=== PATIENT | female | born 1980 | race Caucasian/White ===

== ENCOUNTER 2023-12-27 14:44 | Emergency (ER) | payer OTHER, SELFPAY ==
[2023-12-27 14:55] VITALS: BP 115/82
--- NOTE | 2023-12-27 17:06 | ED.MUSCINJ ---
HPI-Injury
General
Chief Complaint: Musculo-Skeletal Complaint
Source: patient
Exam Limitations: none
Time Seen by Provider: 12/27/23 15:24
Nursing documentation reviewed up to this point in time: agreed with
Travel History
Have you had any contact with someone who has COVID-19?: No
Do you have any symptoms of coronavirus? Fever > 100 degrees, chills, cough, shortness of breath, sore throat, loss of taste or smell, muscle aches, or headache?: No
History of Present Illness-Injury
Initial Injury comments:
43-year-old female with hypothyroidism states 3 days ago she developed pain behind her right knee, the next day the pain became worse and her calf felt tight. Today at the knee the calf and the distal thigh feels tight with a little numbness in the
calf. She denies chest pain or trouble breathing. She denies recent travel.
Past History
Past History
ED Past Medical History: Hypothyroidism and Other (Colitis)
ED Past Surgical History: Cholecystectomy, and Orthopedic (Carpal tunnel Right, Bunionectiomy Left)
Social History
Tobacco: Non-smoker
Alcohol: Occasional
Personal:
Living: with family
Employment: Employed
Review of Systems
Review of Systems
Allergies reviewed?: Yes
All Other Systems: ROS reviewed and negative except as documented in HPI and ROS
Respiratory: Denies trouble breathing
Cardiac: Denies chest pain
Musculoskeletal: Reports other (Pain and tightness behind right knee, right calf, distal right thigh)
Skin: Reports no symptoms
Phy Exam
Physical Exam
Physical Exam:
GENERAL: No acute distress. A&Ox3.
CONSTITUTIONAL: Afebrile.
RESPIRATORY: Regular respirations, nonlabored, lungs clear.
CARDIOVASCULAR: Regular rate and rhythm, no murmurs, no rubs.
MUSCULOSKELETAL: Moves with ease. Well perfused. No significant swelling noted in the right lower extremity. No redness or warmth.
SKIN: Warm, dry, pink
PSYCH: Normal mood and affect. Well kept, interactive and appropriate
NEUROLOGIC: Awake, alert and oriented. No focal neurological deficits
Injury Course
Orders/Labs/Results
Orders:
Orders
12/27/23 16:07
US Periph Venous LOWER Ext RT Urgent
Comment:
Reason For Exam: pain behind knee calf tight
MDM/Problems Addressed
Differential Diagnosis Includes:
DVT, Gregory's cyst, muscle strain
MDM/Problems Addressed:
43-year-old female with hypothyroidism states 3 days ago she developed pain behind her right knee, the next day the pain became worse and her calf felt tight. Today at the knee the calf and the distal thigh feels tight with a little numbness in the
calf. She denies chest pain or trouble breathing. She denies recent travel.
12/27/2023 1650 PM
Ultrasound negative for DVT, most likely a ruptured Gregory's cyst.
Patient is ambulating well without limp
Given a note for off work tomorrow to rest ice and elevate
*Critical Care Note
Total Time (30-74mins, 75-104mins- exclusive of procedures): Not Applicable
ED Attending Note
-
Portions of this chart may have been created with voice recognition software.� Occasional wrong word or��sound alike� substitutions may have occurred due to the inherent limitations of voice recognition software.
Discharge Plan
Departure
Patient Disposition: Home (Routine Discharge)
Date of Disposition: 12/27/23
Time of Disposition: 16:53
Patient with high blood pressure during this ER visit?: No
Condition: Good
Discharge Problem:
Pain in right leg, Gregory's cyst, ruptured
Instructions: Muscle Strain (DC), Gregory's Cyst (DC), Using Cold for Pain
Prescriptions:
No Action
ondansetron 4 mg tablet,disintegrating
4 mg PO Q8HPRN PRN (Reason: nausea and vomiting) Qty: 10 0RF
pantoprazole [Protonix] 40 mg tablet,delayed release (DR/EC)
40 mg PO DAILY Qty: 10 0RF
Referrals:
Luis Miguel Saenz MD [Active] - As needed
NONE,* [Family Provider] -
Stand Alone Forms: Return to Work
Activity Restrictions/Additional Instructions:
Your ultrasound is negative for a clot.
You most likely have ruptured a Gregory's cyst.
Respiratory 3 days then activity as tolerated.
Interventions
Interventions:
*Risk Screen - Suicide Last Done: 12/27/23 14:58
*General Assessment Last Done: 12/27/23 14:58
*Neglect/Abuse Screening Last Done: 12/27/23 14:58
ED- Fall Risk Assessment Last Done: 12/27/23 17:05
*ED COVID-19 Vaccine History Last Done: 12/27/23 17:05
*Nursing Disposition Last Done: 12/27/23 17:05
ED-Musculoskeletal Assessment Last Done: 12/27/23 16:33
Discharge Date and Time
Discharge Date/Time: 12/27/23 17:06
== END 2023-12-27 17:06 | disposition home or self-care (01) ==
LOC: EMR 14:44
PROVIDERS: EMERGENCY PHYSICIAN Emergency Medicine
DX: M79.661 Pain in right lower leg (principal); E03.9 Hypothyroidism, unspecified
CPT/HCPCS: 99284; 93971

== ENCOUNTER → 2024-08-08 07:06 | Outpatient (REF) | payer OTHER, SELFPAY ==
[2024-08-08 19:22] LABS: Rubella Positive
[2024-08-08 20:09] LABS: Hepatitis B Surface Antibody Positive
[2024-08-10 07:20] LABS: Quantiferon Mitogen minus NIL 9.96 IU/mL; Quantiferon NIL 0.04 IU/mL; Quantiferon TB Gold Plus Negative (Negative)
== END ==
LOC: OHS 07:06
PROVIDERS: ATTENDING PHYSICIAN Nurse Practitioner Family
DX: Z23 Encounter for immunization (principal)
CPT/HCPCS: 36415; 86480; 86706; 86735; 86762; 86765; 86787

== ENCOUNTER → 2024-10-04 16:00 | Outpatient (REF) | payer OTHER, SELFPAY ==
[2024-10-04 18:20] LABS: Free T4 1.08 ng/dl (0.78-2.19)
== END ==
LOC: REG 16:00
DX: E06.3 Autoimmune thyroiditis (principal)
CPT/HCPCS: 36415; 84439; 84443

== ENCOUNTER 2024-10-10 17:35 | Emergency (ER) | payer BC, SELFPAY ==
[2024-10-10 17:43] VITALS: BP 111/79
[2024-10-10 18:19] LABS: % Basophils 0.3 % (0-2); % Eosinophils 0.1 % (0-6); % Immature Granulocytes 0.1 % (0-0.5); % Lymphocytes 12.3 % (20.5-51.1); % Monocytes 7.4 % (1.7-9.3); % Neutrophils 79.8 % (42.2-75.2); Absolute Lymphocytes 0.9 10^3/uL (1.2-3.4); Absolute Monocytes 0.5 10^3/uL (0.1-0.6); Absolute Neutrophils 5.7 10^3/uL (1.4-6.5); Hematocrit 40.9 % (37.0-47.0); Hemoglobin 13.9 g/dL (12.0-16.0); Mean Corpuscular Hgb 33.4 pg (27.0-31.0); Mean Corpuscular Volume 98.3 fL (81.0-99.0); Nucleated Red Blood Cells % 0 %; Platelet Count 202 10^3/uL (130-400); Red Blood Cell Count 4.16 10^6/uL (4.20-5.40); Red Cell Dist. Width 12.2 % (11.5-14.5); White Blood Cell Count 7.2 10^3/uL (4.8-10.8)
[2024-10-10 18:35] LABS: ALT (SGPT) 17 U/L (0-35); AST (SGOT) 24 U/L (14-36); Albumin 4.7 g/dl (3.5-5.0); Alkaline Phosphatase 53 U/L (38-126); Blood Urea Nitrogen 18 mg/dl (7-17); Calcium 9.4 mg/dl (8.4-10.2); Carbon Dioxide 29 mmol/L (22-30); Chloride 98 mmol/L (98-107); Glucose 94 mg/dl (70-99); Potassium 4.9 mmol/L (3.5-5.1); Sodium 134 mmol/L (135-145); Total Bilirubin 0.6 mg/dl (0.2-1.3); Total Protein 7.4 g/dl (6.3-8.2); eGFR > 60.00
[2024-10-10 18:51] LABS: COVID-19 Antigen Negative (Negative)
[2024-10-10 22:12] VITALS: BMI 26.8
[2024-10-10 22:14] VITALS: BP 132/81
--- NOTE | 2024-10-10 22:31 | ED.GENMED ---
History of Present Illness
General
Chief Complaint: Headache
Time Seen by Provider: 10/10/24 22:19
History of Present Illness
History of Present Illness:
43-year-old female presents the emergency department for evaluation of diffuse body aches headache cough and fever that began today. Temp on arrival was 101.2 Fahrenheit. Does have a history of migraines but states that her head is never hurt this
bad. Took ibuprofen this morning without relief. No vomiting or diarrhea. No ill contacts at home.
Past History
Past History
ED Past Medical History: Hypothyroidism and Other (Colitis)
ED Past Surgical History: Cholecystectomy, and Orthopedic (Carpal tunnel Right, Bunionectiomy Left)
Social History
Tobacco: Non-smoker
Alcohol: Occasional
Personal:
Living: with family
Employment: Employed
Review of Systems
Review of Systems
Allergies reviewed?: Yes
All Other Systems: ROS reviewed and negative except as documented in HPI and ROS
Phy Exam
Physical Exam
Physical Exam:
GEN: Well appearing, NAD, WDWN
HEENT: Oral mucosa moist, no scleral icterus
Cardiac: Mildly tachycardic, regular
Lung: No respiratory distress, no tachypnea, lungs clear to auscultation bilaterally
MSK: No gross deformity or injuries
Skin: Good color, no pallor or jaundice, no rashes
Neuro: AO x3, cranial nerves II through XII grossly intact, moves all extremities freely
Psych: Calm, cooperative
Sepsis
Sepsis Screening
Sepsis Assessment: Sepsis Ruled Out
Sepsis Screen
Sepsis Screen: Sepsis Ruled Out
Date: 10/11/24
Time: 03:25
Course
Orders/Labs/Results
Orders:
Orders
10/10/24 17:47
Electrocardiogram (*1) Urgent
Reason for Study: Chest Pain
EKG- Treatment ONCE
10/10/24 18:01
COVID-19 Antigen Urgent
Source: Nasal Swab
Complete Blood Count/With Diff Urgent
Comprehensive Metabolic Panel Urgent
Influenza A+B Rapid Molecular Urgent
BENITA Source: Nasal Swab
Specimen Description:
10/10/24 22:30
Butalb/Acetaminophen/Caffeine [Fioricet] 1 tab PO NOW STA
Ketorolac [Toradol] 30 mg IM NOW STA
10/10/24 22:32
Ketorolac [Toradol] 15 mg IV NOW STA
Metoclopramide [Reglan] 10 mg IV NOW STA
Abnormal Lab Results
10/10/24
18:01
RBC 4.16 L 10^6/uL
(4.20-5.40)
MCH 33.4 H pg
(27.0-31.0)
Absolute Lymphs (auto) 0.9 L 10^3/uL
(1.2-3.4)
Neutrophils % 79.8 H %
(42.2-75.2)
Lymphocytes % 12.3 L %
(20.5-51.1)
Sodium 134 L mmol/L
(135-145)
BUN 18 H mg/dl
(7-17)
10/10/24 18:01
10/10/24 18:01
Vital Signs
Initial and Last Documented VS:
Initial Vital Signs
Temp Pulse Resp BP Pulse Ox
101.2 F H 118 20 111/79 99
10/10/24 17:43 10/10/24 17:43 10/10/24 17:43 10/10/24 17:43 10/10/24 17:43
Last Documented Vital Signs
Temp Pulse Resp BP Pulse Ox
99.7 F 92 16 95/54 98
10/10/24 22:14 10/11/24 00:16 10/11/24 00:16 10/11/24 00:16 10/11/24 00:16
MDM/Problems Addressed
MDM/Problems Addressed:
Suspect acute influenza given fever body aches and headache although influenza testing negative, this may be false negative in the setting of early presentation. No indications for antivirals at this time. Labs reassuring, headache resolved with
supportive treatment in the ED. Discussed supportive care
*Critical Care Note
Total Time (30-74mins, 75-104mins- exclusive of procedures): Not Applicable
ED Attending Note
-
Portions of this chart may have been created with voice recognition software.� Occasional wrong word or��sound alike� substitutions may have occurred due to the inherent limitations of voice recognition software.
Discharge Plan
Departure
Patient Disposition: Home (Routine Discharge)
Date of Disposition: 10/11/24
Time of Disposition: 00:10
Patient with high blood pressure during this ER visit?: No
Discharge Problem:
Influenza
Instructions: Flu
Prescriptions:
No Action
ondansetron 4 mg tablet,disintegrating
4 mg PO Q8HPRN PRN (Reason: nausea and vomiting) Qty: 10 0RF
pantoprazole [Protonix] 40 mg tablet,delayed release (DR/EC)
40 mg PO DAILY Qty: 10 0RF
Referrals:
NONE,* [Family Provider] -
Stand Alone Forms: Return to Work
Interventions
Interventions:
*Risk Screen - Suicide Last Done: 10/10/24 17:43
*General Assessment Last Done: 10/10/24 17:43
*Neglect/Abuse Screening Last Done: 10/10/24 17:43
*Nursing Disposition Last Done: 10/11/24 00:30
ED- Neurological Assessment Last Done: 10/10/24 23:00
Discharge Date and Time
Discharge Date/Time: 10/11/24 00:32
Print Language: ARABIC
[2024-10-10] MEDS: TORADOL 15 MG IV (23:14)
[2024-10-10] MEDS: FIORICET 1 TAB PO (23:19)
[2024-10-10] MEDS: REGLAN 10 MG IV (23:21)
[2024-10-11 00:16] VITALS: BP 95/54
== END 2024-10-11 00:32 | disposition home or self-care (01) ==
LOC: EMR 17:35
PROVIDERS: Emergency Medicine; EMERGENCY PHYSICIAN Emergency Medicine
DX: J11.1 Influenza due to unidentified influenza virus with other respiratory manifestations (principal); E03.9 Hypothyroidism, unspecified; Z90.49 Acquired absence of other specified parts of digestive tract
CPT/HCPCS: 96374; 96375; 99284; 80053; 85025; 87502; 87811; 93005

== ENCOUNTER → 2024-11-26 08:25 | Outpatient (REF) | payer BC, SELFPAY ==
[2024-11-26 15:55] LABS: Free T3 3.42 pg/ml (2.77-5.27); Free T4 1.43 ng/dl (0.78-2.19)
[2024-11-26 16:10] LABS: TSH 0.38 uIU/ml (0.47-4.68)
== END ==
LOC: REG 08:25
DX: E06.3 Autoimmune thyroiditis (principal)
CPT/HCPCS: 36415; 84439; 84443; 84481

== ENCOUNTER → 2025-03-17 08:43 | Outpatient (REF) | payer BC, SELFPAY ==
[2025-03-17 09:51] LABS: % Basophils 0.4 % (0-2); % Eosinophils 0.3 % (0-6); % Immature Granulocytes 0.3 % (0-0.5); % Lymphocytes 20.2 % (20.5-51.1); % Monocytes 5.5 % (1.7-9.3); % Neutrophils 73.3 % (42.2-75.2); Absolute Lymphocytes 1.6 10^3/uL (1.2-3.4); Absolute Monocytes 0.4 10^3/uL (0.1-0.6); Absolute Neutrophils 5.8 10^3/uL (1.4-6.5); Hematocrit 42.5 % (37.0-47.0); Hemoglobin 14.3 g/dL (12.0-16.0); Mean Corp Hgb Conc. 33.6 g/dL (33.0-37.0); Mean Corpuscular Hgb 33.5 pg (27.0-31.0); Mean Corpuscular Volume 99.5 fL (81.0-99.0); Mean Platelet Volume 10.2 fL (7.4-10.4); Nucleated Red Blood Cells % 0 %; Platelet Count 214 10^3/uL (130-400); Red Blood Cell Count 4.27 10^6/uL (4.20-5.40); Red Cell Dist. Width 12.5 % (11.5-14.5); White Blood Cell Count 7.9 10^3/uL (4.8-10.8)
[2025-03-17 11:21] LABS: Glycohemoglobin (HgbA1c) 5.2 % (4.0-5.6)
[2025-03-17 11:26] LABS: ALT (SGPT) 16 U/L (0-35); AST (SGOT) 20 U/L (14-36); Albumin 4.8 g/dl (3.5-5.0); Alkaline Phosphatase 60 U/L (38-126); Blood Urea Nitrogen 16 mg/dl (7-17); Calcium 9.7 mg/dl (8.4-10.2); Carbon Dioxide 26 mmol/L (22-30); Chloride 104 mmol/L (98-107); Glucose 93 mg/dl (70-99); HDL Cholesterol 63 mg/dl; LDL Cholesterol, Calculated 74 mg/dl; Potassium 4.9 mmol/L (3.5-5.1); Sodium 138 mmol/L (135-145); Total Bilirubin 0.9 mg/dl (0.2-1.3); Total Cholesterol 155 mg/dl (50-199); Total Protein 7.4 g/dl (6.3-8.2); Triglyceride 91 mg/dl (10-149); Very Low Density Lipoprotein 18 mg/dl (0-30); eGFR > 60.00
[2025-03-17 18:59] LABS: Hepatitis C Antibody Negative (Negative)
== END ==
LOC: REG 08:43
PROVIDERS: ATTENDING PHYSICIAN Internal Medicine
DX: E06.3 Autoimmune thyroiditis (principal); Z13.220 Encounter for screening for lipoid disorders; Z11.4 Encounter for screening for human immunodeficiency virus [HIV]; Z13.1 Encounter for screening for diabetes mellitus; Z11.59 Encounter for screening for other viral diseases; E66.3 Overweight; Z68.28 Body mass index [BMI] 28.0-28.9, adult
CPT/HCPCS: 36415; 80053; 80061; 83036; 84443; 85025; 86803; 87389

== ENCOUNTER 2025-06-18 22:04 | Emergency (ER) | payer SELFPAY ==
[2025-06-18 22:07] VITALS: BP 134/91
[2025-06-18 22:32] LABS: Hematocrit 38.3 % (37.0-47.0); Hemoglobin 13.2 g/dL (12.0-16.0); Mean Corp Hgb Conc. 34.5 g/dL (33.0-37.0); Mean Corpuscular Volume 96.5 fL (81.0-99.0); Nucleated Red Blood Cells % 0 %; Platelet Count 199 10^3/uL (130-400); Red Cell Dist. Width 12.3 % (11.5-14.5)
[2025-06-18 22:47] LABS: ALT (SGPT) 17 U/L (0-35); AST (SGOT) 20 U/L (14-36); Albumin 4.5 g/dl (3.5-5.0); Alkaline Phosphatase 55 U/L (38-126); Blood Urea Nitrogen 12 mg/dl (7-17); Calcium 9.5 mg/dl (8.4-10.2); Carbon Dioxide 27 mmol/L (22-30); Chloride 108 mmol/L (98-107); Glucose 102 mg/dl (70-99); Potassium 4.2 mmol/L (3.5-5.1); Sodium 139 mmol/L (135-145); Total Protein 7.1 g/dl (6.3-8.2); eGFR > 60.00
== END 2025-06-19 00:20 ==
LOC: EMR 22:04
PROVIDERS: EMERGENCY PHYSICIAN Emergency Medicine
DX: Z53.21 Procedure and treatment not carried out due to patient leaving prior to being seen by health care provider (principal)
CPT/HCPCS: 80053; 85025; 93005

== ENCOUNTER → 2025-08-27 08:01 | Outpatient (REF) | payer BC, SELFPAY | LOC: HWWDC 08:01 | PROVIDERS: ATTENDING PHYSICIAN Student in an Organized Health Care Education/Training Program; FAMILY PHYSICIAN Nurse Practitioner | DX: Z12.31 Encounter for screening mammogram for malignant neoplasm of breast (principal) | CPT/HCPCS: 77063; 77067 ==

== ENCOUNTER → 2025-09-03 09:17 | Outpatient (REF) | payer BC, SELFPAY | LOC: WDC 09:17 | PROVIDERS: ATTENDING PHYSICIAN Obstetrics & Gynecology; FAMILY PHYSICIAN Nurse Practitioner | DX: N64.4 Mastodynia (principal) | CPT/HCPCS: 76642 ==